=== PATIENT | female | born 1960 | race Caucasian/White ===

== ENCOUNTER → 2020-03-08 | Outpatient (CLI) | payer MEDICARE ==
[~2020-03-08] MED LIST: BP MEDS; CHOESTEROL MED; IBUPROFEN 800800 MG PO; ULTRAM 50MG TAB50 MG PO
== END ==
LOC: M.RAD 13:17
PROVIDERS: ATTEND Surgery
DX: Z12.31 Encounter for screening mammogram for malignant neoplasm of breast (principal); N63.20 Unspecified lump in the left breast, unspecified quadrant

== ENCOUNTER → 2020-05-14 | Outpatient (CLI) | payer MEDICARE | LOC: M.ULTRA 09:26 | PROVIDERS: ATTEND Surgery | DX: N63.21 Unspecified lump in the left breast, upper outer quadrant (principal); N63.14 Unspecified lump in the right breast, lower inner quadrant ==

== ENCOUNTER → 2020-05-19 | Outpatient (CLI) | payer MEDICARE ==
--- NOTE | 2020-05-21 17:07 | PATH ---
[address] [address] PATHOLOGY RPT PROCEDURE Name: LASHAWN CALLEJAS Room: [facility] MERARY Fountain#: [id number] Admission: 05/19/20 Date of : 60 Discharge: Report #: [id number] Path Case #: [id number] [facility] Accession Number: [id number] . 01 Material submitted: . breast - LEFT BREAST BIOPSY. Modifiers: left . 01 Clinical history: . LEFT BREAST BIOPSY FOR MASS . 02 Diagnosis: Left breast mass, biopsy: - Benign breast tissue with usual ductal epithelial hyperplasia and focal chronic inflammation in association with abundant fresh blood, negative for atypia. See comment. LBQ 05/21/2020 1219 Local . 02 Comment: Reviewed with Dr. Robel Bell on 05/21/2020 who agrees with the diagnosis. (UMA/db; 05/21/2020) . 02 Electronically signed: . Poncho Horn MD, Pathologist NPI- [id number] . 01 Gross description: . Received in formalin labeled "Lashawn Callejas, left breast mass" are multiple murrieta-yellow lobulated soft tissue cores and hemorrhagic material measuring in aggregate 5.2 x 4.6 x 0.3 cm. The specimen is submitted entirely in cassettes A1-A4. The specimen is removed from the patient at 1420 and placed in formalin at 1430 on 05/19/20. The specimen is removed from formalin at 1850 on 05/20/20. ([facility]; 05/20/2020) [facility] 05/20/2020 0907 Local . 02 Pathologist provided ICD-10: N62, N61.0 . 02 CPT . 270617 Specimen Comment: A courtesy copy of this report has been sent to [phone] Specimen Comment: Report sent to , / Performed at: [address] [id number] MD Albert Mccracken MD Phone: [phone] Performed at: 02 [facility] [address] [place], [place] [id number] [facility] [address] [place] [address] PATHOLOGY RPT PROCEDURE Name: LASHAWN CALLEJAS Room: [facility]#: [id number] Admission: 05/19/20 Date of : 60 Discharge: Report #: [id number] Path Case #: [id number] MD Isaac [facility] Phone: [phone]
--- NOTE | 2020-05-26 10:33 | PATH ---
[address] [address] PATHOLOGY RPT PROCEDURE Name: LASHAWN CALLEJAS Room: [facility]ARY Fountain#: [id number] Admission: 05/19/20 Date of : 60 Discharge: Report #: [id number] Path Case #: [id number] [facility] Accession Number: [id number] . 01 Material submitted: . breast - LEFT BREAST BIOPSY 3:00 4CMFN. Modifiers: left . 01 Clinical history: . LEFT BREAST MASS 0.89 X 0.68 X 0.71 CM . 02 Diagnosis: Left breast mass, 3:00, 4 cm from nipple, biopsy: - Fragments of benign lymph node and benign breast tissue with usual ductal epithelial hyperplasia and focal chronic inflammation, negative for atypia. See comment. LBQ 05/24/2020 1101 Local . 02 Comment: Several segments of benign lymph node span up to 6 mm when measured off glass slide A2. Reviewed with Dr. Robel Bell on 05/24/2020 who agrees with the diagnosis. (UMA/db; 05/24/2020) . 02 Electronically signed: . Poncho Horn MD, Pathologist NPI- [id number] . 01 Gross description: . The specimen is received in formalin, labeled "Lashawn Callejas, left breast 3:00 4 cm FN" and consists of 7 needle cores of yellow tissue measuring between 0.6 cm and 3.0 cm in length and ranging from 0.1-0.3 cm in diameter which are entirely submitted in A1-A3. The specimen was collected at 1:45 PM on 05/19/2020 and placed in formalin at 1:51 PM. The cold ischemic time is 6 minutes and the total formalin fixation time is greater than 6 hours less than 72 hours. (SDY; 05/21/2020) SYU/SYU 05/21/2020 1039 Local . 02 Pathologist provided ICD-10: N62, N61.0 . 02 CPT . 864791 Specimen Comment: A courtesy copy of this report has been sent to [phone] Specimen Comment: Report sent to Specimen Comment: A duplicate report has been generated due to demographic updates. Performed at: 01 [place] [address] PATHOLOGY RPT PROCEDURE Name: LASHAWN CALLEJAS [id number] Admission: 05/19/20 Date of : 60 Discharge: Report #: [id number] Path Case #: [id number] [facility] [place] [address], [place], [place] [id number] MD Albert Mccracken MD Phone: [phone] Performed at: 02 [facility] [address], [place], [place] [id number] MD Poncho Horn MD Phone: [phone]
== END | disposition home or self-care (01) ==
LOC: M.ULTRA 12:20
PROVIDERS: ATTEND Surgery
DX: N62 Hypertrophy of breast (principal); N61.0 Mastitis without abscess; R92.1 Mammographic calcification found on diagnostic imaging of breast; I10 Essential (primary) hypertension; M19.90 Unspecified osteoarthritis, unspecified site; Z98.890 Other specified postprocedural states; Z79.899 Other long term (current) drug therapy

== ENCOUNTER → 2020-11-15 | Outpatient (CLI) | payer MEDICARE | LOC: M.RAD 10-29 12:59 | PROVIDERS: ATTEND Surgery | DX: N63.20 Unspecified lump in the left breast, unspecified quadrant (principal); R92.8 Other abnormal and inconclusive findings on diagnostic imaging of breast ==